=== PATIENT | male | born 1965 | race Two or more races ===

== ENCOUNTER → 2017-05-31 | Emergency (ER) | payer OTHER ==
[~2017-05-31] VITALS: Ht 177.8 cm; Wt 88.5 kg
[~2017-05-31] MED LIST: FIBER DIET1 TA1; PROTONIX40 MG
== END | disposition left against medical advice (07) ==
LOC: ER 07:18
DX: R51 Headache (principal)

== ENCOUNTER 2018-08-31 09:32 | Emergency (ER) | payer OTHER ==
[~2018-08-31] VITALS: Ht 177.8 cm; Wt 89.8 kg
== END 2018-08-31 13:46 | disposition home or self-care (01) ==
LOC: ER 09:32
DX: B34.9 Viral infection, unspecified (principal)

== ENCOUNTER 2022-02-05 14:59 | Emergency (ER) | payer OTHER ==
[~2022-02-05] VITALS: Ht 177.8 cm; Wt 95.3 kg
== END 2022-02-05 19:21 | disposition home or self-care (01) ==
LOC: ER 14:59
DX: R30.0 Dysuria (principal)

== ENCOUNTER 2023-04-01 07:26 | Outpatient (CLI) | payer OTHER | END 2023-04-01 07:39 | disposition home or self-care (01) | LOC: SONOGRAMA 07:26 | PROVIDERS: ATTEND Family Medicine | DX: N50.812 Left testicular pain (principal); N50.811 Right testicular pain ==